=== PATIENT | male | born 1930 | race Caucasian/White ===

== ENCOUNTER 2016-06-04 09:03 | Outpatient (CLI) | payer MEDICARE, OTHER | END 2016-06-04 09:04 | disposition critical access hospital (66) | DX: R06.02 Shortness of breath (principal) | CPT/HCPCS: A0425; A0429 ==

== ENCOUNTER 2016-06-04 09:19 | Emergency (ER) | payer MEDICARE, OTHER ==
[2016-06-04] MEDS ORDERED: SODIUM CHLORIDE 0.9% 500 ML IV ONE ×2 (10:09→12:04)
[2016-06-04] MEDS ORDERED: cefTRIAXone 1 GM in SODIUM CHLORIDE 0.9% MINIBAG 100 ML IV STA (12:03)
[2016-06-04] MEDS ORDERED: AZITHROMYCIN INJ 500 MG in SODIUM CHLORIDE 0.9% 250 ML IV STA (12:03)
[2016-06-04] MEDS ORDERED: cefTRIAXone 1 GM VIAL ONE (12:07)
[2016-06-04] MEDS ORDERED: MIN OIL/DIMETHICON/COCONUT OIL 92 GM TUBE TOP SCH (13:00)
[2016-06-04] MEDS ORDERED: MICONAZOLE NITRATE TOP SCH (13:00)
== END 2016-06-04 13:50 | disposition short-term general hospital (02) ==
DX: J90 Pleural effusion, not elsewhere classified (principal); R09.02 Hypoxemia; R06.89 Other abnormalities of breathing; N28.9 Disorder of kidney and ureter, unspecified; E86.0 Dehydration; L89.159 Pressure ulcer of sacral region, unspecified stage; I89.0 Lymphedema, not elsewhere classified; S81.812A Laceration without foreign body, left lower leg, initial encounter; X58.XXXA Exposure to other specified factors, initial encounter; I10 Essential (primary) hypertension; Z79.82 Long term (current) use of aspirin

== ENCOUNTER 2016-06-04 13:55 | Outpatient (CLI) | payer MEDICARE, OTHER | END 2016-06-04 13:56 | disposition short-term general hospital (02) | DX: J90 Pleural effusion, not elsewhere classified (principal); R06.89 Other abnormalities of breathing | CPT/HCPCS: A0425; A0426 ==